=== PATIENT | female | born 1975 | race Caucasian/White ===

== ENCOUNTER 2017-09-04 14:12 | Emergency (ER) | payer MEDICAID ==
[~2017-09-04] VITALS: Ht 157.5 cm; Wt 70.0 kg
[~2017-09-04 14:12] MED LIST: ATEN25TA PO; HYDR-3686 PO; KETO15CR2 TP; MAGN400C PO; OMEP20CA10 PO; ONDA4TAB9 SL; PARO10TA85 PO; POTA20TA19 PO
[2017-09-04] MEDS ORDERED: clonazePAM 1mg tablet PO ONE (17:10)
[2017-09-04 17:52] VITALS: BP 117/76
== END 2017-09-04 17:58 | disposition home or self-care (01) ==
LOC: ER 14:15
DX: F41.0 Panic disorder [episodic paroxysmal anxiety] (principal); K21.9 Gastro-esophageal reflux disease without esophagitis; F32.9 Major depressive disorder, single episode, unspecified; Z87.891 Personal history of nicotine dependence
CPT/HCPCS: 93005; 99284

== ENCOUNTER 2018-05-25 13:50 | Emergency (ER) | payer MEDICAID ==
[~2018-05-25] VITALS: Ht 157.5 cm; Wt 60.0 kg
[2018-05-25 13:54] VITALS: BP 121/72
[2018-05-25] MEDS ORDERED: nitroGLYCERIN 0.4mg SUBLingual tab SL PRN (13:55)
[2018-05-25] MEDS ORDERED: aspirin 81mg tab.chew PO ONE (13:55)
[2018-05-25 14:33] LABS: BASOPHILS % (AUTO) 0.5 % (0-1); EOSINOPHILS # (AUTO) 0.2 X10'3 (0-0.9); EOSINOPHILS % (AUTO) 2.1 % (0-6); HEMATOCRIT 40.6 % (35.0-45.0); HEMOGLOBIN 14.2 g/dl (12.0-16.0); MEAN CORPUSCULAR HEMOGLOBIN 31.7 PG (27.0-31.0); MEAN CORPUSCULAR VOLUME 90.6 FL (78-98); MEAN PLATELET VOLUME 9.5 FL (7.4-10.4); MONOCYTES # (AUTO) 0.6 X10'3 (0-0.9); MONOCYTES % (AUTO) 7.9 % (2-12); NEUTROPHILS # (AUTO) 5.1 X10'3 (1.8-7.7); NEUTROPHILS % (AUTO) 64.5 % (42-75); PLATELET COUNT 249 X10'3 (140-440); RED BLOOD COUNT 4.49 X10'6 (4.20-5.60); RED CELL DISTRIBUTION WIDTH 13.1 % (11.5-14.5); WHITE BLOOD COUNT 7.9 X10'3 (4.5-11.0)
[2018-05-25 14:42] LABS: PROTHROMBIN TIME 10.4 SECONDS (9.0-12.0)
[2018-05-25 14:54] LABS: ALANINE AMINOTRANSFERASE 17 U/L (12-78); ALBUMIN/GLOBULIN RATIO 1.2 (1.1-1.5); ALKALINE PHOSPHATASE 42 IU/L (46-116); ANION GAP 11 (8-16); ASPARTATE AMINO TRANSFERASE 12 U/L (10-37); BILIRUBIN,TOTAL 0.5 MG/DL (0.1-1.0); BLOOD UREA NITROGEN 11 MG/DL (7-18); BUN/CREATININE RATIO 11.7 (6.6-38.0); CALCIUM 9.6 MG/DL (8.5-10.1); CHLORIDE 100 MMOL/L (99-107); CREATININE 0.94 MG/DL (0.40-0.90); GLUCOSE 101 MG/DL (70-104); SODIUM 140 MMOL/L (135-145); TOTAL CARBON DIOXIDE 28.7 MMOL/L (24-32); TOTAL PROTEIN 7.4 G/DL (6.4-8.2); eGFR 65 ML/MIN
[2018-05-25 14:56] LABS: POTASSIUM 2.9 MMOL/L (3.5-5.1)
[2018-05-25] MEDS ORDERED: potassium Cl oral solution 20 MEQ/15 ML PO ONE (15:00)
== END 2018-05-25 15:14 | disposition home or self-care (01) ==
LOC: ER 13:50
DX: F41.9 Anxiety disorder, unspecified (principal); E86.0 Dehydration; E87.6 Hypokalemia; N28.9 Disorder of kidney and ureter, unspecified; K21.9 Gastro-esophageal reflux disease without esophagitis; F32.9 Major depressive disorder, single episode, unspecified; Z79.899 Other long term (current) drug therapy
CPT/HCPCS: 36415; 71045; 80053; 83880; 84484; 85025; 85610; 93005; 99285

== ENCOUNTER 2018-10-20 08:33 | Emergency (ER) | payer MEDICAID ==
[~2018-10-20] VITALS: Ht 157.5 cm; Wt 58.0 kg
[2018-10-20] MEDS ORDERED: diphenhydrAMINE 50 mg/ml inj IM ONE (09:55)
[2018-10-20] MEDS ORDERED: PRED50TA PO (09:58)
[2018-10-20] MEDS ORDERED: DIPH25CA83 PO (09:58)
[2018-10-20] MEDS ORDERED: predniSONE 20 mg tablet PO ONE (10:00)
[2018-10-20 10:37] VITALS: BP 121/91
== END 2018-10-20 10:42 | disposition home or self-care (01) ==
LOC: ER 08:34
DX: L50.0 Allergic urticaria (principal); K21.9 Gastro-esophageal reflux disease without esophagitis; F17.200 Nicotine dependence, unspecified, uncomplicated
CPT/HCPCS: 93005; 96372; 99283; J1200; J7512

== ENCOUNTER 2019-03-25 09:25 | Emergency (ER) | payer MEDICAID ==
[~2019-03-25] VITALS: Ht 157.5 cm; Wt 59.1 kg
[~2019-03-25 09:25] MED LIST changes: +DIPH25CA83 PO; -OMEP20CA10 PO; +OMEP20CA11 PO; +PRED50TA PO
[2019-03-25 10:06] LABS: BASOPHILS # (AUTO) 0.1 X10'3 (0-0.2); BASOPHILS % (AUTO) 1.4 % (0-1); EOSINOPHILS # (AUTO) 0.2 X10'3 (0-0.9); HEMATOCRIT 42.7 % (35.0-45.0); LYMPHOCYTES # (AUTO) 1.7 X10'3 (1.1-4.8); LYMPHOCYTES % (AUTO) 30.9 % (21-51); MEAN CORPUSCULAR HEMOGLOBIN 32.8 PG (27.0-31.0); MEAN CORPUSCULAR VOLUME 93.6 FL (78-98); MONOCYTES # (AUTO) 0.5 X10'3 (0-0.9); MONOCYTES % (AUTO) 8.6 % (2-12); NEUTROPHILS % (AUTO) 56.1 % (42-75); PLATELET COUNT 206 X10'3 (140-440); RED BLOOD COUNT 4.56 X10'6 (4.20-5.60); RED CELL DISTRIBUTION WIDTH 12.5 % (11.5-14.5); WHITE BLOOD COUNT 5.4 X10'3 (4.5-11.0)
[2019-03-25 10:20] LABS: ALANINE AMINOTRANSFERASE 15 U/L (12-78); ALBUMIN 3.7 G/DL (3.4-5.0); ALBUMIN/GLOBULIN RATIO 1.2 (1.1-1.5); ALKALINE PHOSPHATASE 32 IU/L (46-116); ANION GAP 9 (8-16); ASPARTATE AMINO TRANSFERASE 10 U/L (10-37); BILIRUBIN,TOTAL 0.8 MG/DL (0.1-1.0); BLOOD UREA NITROGEN 7 MG/DL (7-18); BUN/CREATININE RATIO 8.5 (6.6-38.0); CHLORIDE 101 MMOL/L (99-107); CREATININE 0.82 MG/DL (0.40-0.90); GLUCOSE 97 MG/DL (70-104); POTASSIUM 3.1 MMOL/L (3.5-5.1); SODIUM 139 MMOL/L (135-145); TOTAL CARBON DIOXIDE 29.5 MMOL/L (24-32); TOTAL PROTEIN 6.8 G/DL (6.4-8.2); eGFR 76 ML/MIN
[2019-03-25] MEDS ORDERED: normal saline 1000ML IV soln IVB ONE ×2 (10:35)
[2019-03-25] MEDS ORDERED: potassium Cl 20 mEq SR tablet PO ONE (10:35)
[2019-03-25 12:25] VITALS: BP 110/84
== END 2019-03-25 12:30 | disposition home or self-care (01) ==
LOC: ER 09:26
DX: F41.9 Anxiety disorder, unspecified (principal); R42 Dizziness and giddiness; E87.6 Hypokalemia; R07.89 Other chest pain; K21.9 Gastro-esophageal reflux disease without esophagitis; F32.9 Major depressive disorder, single episode, unspecified; R10.13 Epigastric pain; H53.8 Other visual disturbances; Z86.69 Personal history of other diseases of the nervous system and sense organs; Z87.891 Personal history of nicotine dependence; Z79.899 Other long term (current) drug therapy
CPT/HCPCS: 36415; 71045; 80053; 85025; 93005; 99284; J7030; J7040

== ENCOUNTER 2019-05-01 09:32 | Observation (INO) | payer MEDICAID ==
[~2019-05-01] VITALS: Ht 157.5 cm; Wt 56.0 kg
[2019-05-01 10:28] LABS: PARTIAL THROMBOPLASTIN TIME 29 SECONDS (22-32)
[2019-05-01 10:35] LABS: ALANINE AMINOTRANSFERASE 13 U/L (12-78); ALBUMIN/GLOBULIN RATIO 1.3 (1.1-1.5); ALKALINE PHOSPHATASE 27 IU/L (46-116); ANION GAP 9 (8-16); ASPARTATE AMINO TRANSFERASE 7 U/L (10-37); BLOOD UREA NITROGEN 9 MG/DL (7-18); BUN/CREATININE RATIO 10.1 (6.6-38.0); CALCIUM 8.8 MG/DL (8.5-10.1); CHLORIDE 100 MMOL/L (99-107); CREATININE 0.89 MG/DL (0.40-0.90); GLUCOSE 140 MG/DL (70-104); SODIUM 139 MMOL/L (135-145); TOTAL CARBON DIOXIDE 29.9 MMOL/L (24-32); TOTAL PROTEIN 7.1 G/DL (6.4-8.2); eGFR 69 ML/MIN
[2019-05-01] MEDS ORDERED: LORazepam 2 mg/ml vial IM ONE (10:35)
[2019-05-01 10:38] LABS: POTASSIUM 2.5 MMOL/L (3.5-5.1)
[2019-05-01 10:43] LABS: BASOPHILS % (AUTO) 0.6 % (0-1); EOSINOPHILS % (AUTO) 0.8 % (0-6); LYMPHOCYTES # (AUTO) 1.2 X10'3 (1.1-4.8); LYMPHOCYTES % (AUTO) 21.4 % (21-51); MEAN PLATELET VOLUME 9.1 FL (7.4-10.4); MONOCYTES # (AUTO) 0.5 X10'3 (0-0.9); NEUTROPHILS # (AUTO) 3.8 X10'3 (1.8-7.7); NEUTROPHILS % (AUTO) 68.2 % (42-75); PLATELET COUNT 250 X10'3 (140-440); WHITE BLOOD COUNT 5.6 X10'3 (4.5-11.0)
[2019-05-01] MEDS ORDERED: potassium 10mEq/100ml NS w/LIDOcaine (10mg/bag) IV ONE (10:45)
[2019-05-01] MEDS ORDERED: potassium Cl 20 mEq SR tablet PO ONE (10:45)
[2019-05-01 10:50] LABS: HEMOGLOBIN 15.7 g/dl (12.0-16.0); MEAN CORPUSCULAR HEMOGLOBIN 32.3 PG (27.0-31.0); MEAN CORPUSCULAR HGB CONC 34.9 g/dL (33.0-36.5); MEAN CORPUSCULAR VOLUME 92.8 FL (78-98); RED BLOOD COUNT 4.86 X10'6 (4.20-5.60); RED CELL DISTRIBUTION WIDTH 12.4 % (11.5-14.5)
[2019-05-01] MEDS ORDERED: potassium CL 10mEq/100ml bag 100 ML IV ONE (10:52)
[2019-05-01 11:29] LABS: MAGNESIUM 1.4 MG/DL (1.5-2.4)
[2019-05-01] MEDS ORDERED: magnesium 4gm in 100ml NS 100 ML IV PRN (12:05)
[2019-05-01] MEDS ORDERED: potassium CL 10mEq/100ml bag 100 ML IV PRN ×2 (12:05)
[2019-05-01] MEDS ORDERED: ondansetron/PF 4mg/2ml inj IV PRN (12:05)
[2019-05-01] MEDS ORDERED: magnesium Cl slow-release 64mg tablet PO PRN (12:05)
[2019-05-01] MEDS ORDERED: magnesium 2GM in 50ml NS 50 ML IV PRN (12:05)
[2019-05-01] MEDS ORDERED: morphine 2 MG/ML inj. syringe IV PRN (12:05)
[2019-05-01] MEDS ORDERED: HYDROcodone/acetaminophen 5mg/325mg tablet PO PRN (12:05)
[2019-05-01] MEDS ORDERED: acetaminophen 325mg tablet PO PRN ×2 (12:05)
[2019-05-01] MEDS ORDERED: potassium Cl 20 mEq SR tablet PO PRN (12:05)
[2019-05-01] MEDS: normal saline 1000ml 1,000 ML IV SCH ×3 (12:27→20:42)
[2019-05-01] MEDS ORDERED: BUSP5TAB3 PO (13:03)
[2019-05-01] MEDS ORDERED: FLUO10CA28 PO (13:03)
[2019-05-01] MEDS ORDERED: HYDR-3686 PO (13:03)
[2019-05-01 14:00] VITALS: BP 97/53
--- NOTE | 2019-05-01 14:00 | NUR ---
Received patient report from SEB Fragoso. Patient to room 355 B. Patient alert, oriented, and in no apparent distress at this time. patient ambulated to the bed from the [facility]. Call light in reach, BLL.
--- NOTE | 2019-05-01 18:10 | NUR ---
Problems reprioritized. Patient report given, questions answered & plan of care reviewed with SEB Finn.
[2019-05-01 18:50] VITALS: BP 101/56
[2019-05-01] MEDS: potassium Cl 20 mEq SR tablet PO PRN (19:26)
[2019-05-01] MEDS: busPIRone 15mg tablet PO SCH (20:11)
[2019-05-01] MEDS: heparin, porcine 5000 units/ml vial SQ SCH (20:12)
[2019-05-01] MEDS: hydrOXYzine 25 MG tablet PO SCH (20:13)
[2019-05-01] MEDS ORDERED: temazepam 15mg capsule PO PRN (21:00)
[2019-05-01 23:00] VITALS: BP 98/54
[2019-05-02 05:43] LABS: BASOPHILS # (AUTO) 0.1 X10'3 (0-0.2); BASOPHILS % (AUTO) 0.9 % (0-1); EOSINOPHILS # (AUTO) 0.2 X10'3 (0-0.9); HEMATOCRIT 40.9 % (35.0-45.0); HEMOGLOBIN 14.5 g/dl (12.0-16.0); LYMPHOCYTES # (AUTO) 1.9 X10'3 (1.1-4.8); LYMPHOCYTES % (AUTO) 32.3 % (21-51); MEAN CORPUSCULAR HEMOGLOBIN 32.8 PG (27.0-31.0); MEAN CORPUSCULAR HGB CONC 35.5 g/dL (33.0-36.5); MEAN CORPUSCULAR VOLUME 92.6 FL (78-98); MEAN PLATELET VOLUME 9.4 FL (7.4-10.4); MONOCYTES # (AUTO) 0.5 X10'3 (0-0.9); MONOCYTES % (AUTO) 8.1 % (2-12); NEUTROPHILS # (AUTO) 3.3 X10'3 (1.8-7.7); NEUTROPHILS % (AUTO) 55.7 % (42-75); PLATELET COUNT 232 X10'3 (140-440); RED BLOOD COUNT 4.42 X10'6 (4.20-5.60); RED CELL DISTRIBUTION WIDTH 12.5 % (11.5-14.5)
[2019-05-02 05:50] LABS: ALBUMIN 3.5 G/DL (3.4-5.0); ANION GAP 10 (8-16); BLOOD UREA NITROGEN 5 MG/DL (7-18); BUN/CREATININE RATIO 7.4 (6.6-38.0); CALCIUM 8.3 MG/DL (8.5-10.1); CHLORIDE 106 MMOL/L (99-107); CREATININE 0.68 MG/DL (0.40-0.90); GLUCOSE 97 MG/DL (70-104); MAGNESIUM 1.7 MG/DL (1.5-2.4); POTASSIUM 3.1 MMOL/L (3.5-5.1); SODIUM 142 MMOL/L (135-145); TOTAL CARBON DIOXIDE 26.2 MMOL/L (24-32); eGFR > 90 ML/MIN
--- NOTE | 2019-05-02 06:24 | NUR ---
Problems reprioritized. Patient report given, questions answered & plan of care reviewed with Eleonora. Addendum: 05/02/19 at 0625 by Dio Santos RN Amended: Links added.
[2019-05-02 07:00] VITALS: BP 104/70
[2019-05-02] MEDS: LORazepam 1 MG tablet PO PRN ×2 (07:50→14:32)
[2019-05-02] MEDS: busPIRone 15mg tablet PO SCH (07:51)
[2019-05-02] MEDS: hydrOXYzine 25 MG tablet PO SCH (07:53)
[2019-05-02] MEDS: potassium Cl 20 mEq SR tablet PO PRN (07:57)
[2019-05-02] MEDS: heparin, porcine 5000 units/ml vial SQ SCH (07:59)
[2019-05-02] MEDS ORDERED: K and/or MAG REPLACEMENT MC SCH (08:00)
--- NOTE | 2019-05-02 08:00 | NUR ---
Patient refused heparin because she feels uncomfortable taking it. Patient educated and the benefit of having the heparin. Patient stated an understanding of this but still refused stating that she will be up and walking. Patient also very anxious at this time. Ativan given. Patient stated that her normal medications and doses are not being followed here and that she would like the MD to address this. Will discuss with Dr. Delgado.
--- NOTE | 2019-05-02 09:00 | NUR ---
Dr. Delgado in to see patient. Patient's normal home medications and doses were discussed with the MD. MD stated her current dose strength is okay and she will more than likely be discharging the patient anyway.
[2019-05-02] MEDS ORDERED: BUSP5TAB3 PO (09:07)
--- NOTE | 2019-05-02 10:15 | NUR ---
Received a message from Dr. Delgado that the discharge has been put in for patient but not to discharge until K is back within normal range. Dr. Delgado came back to the floor and was asked about the doses of potassium again. Patient normally takes a total of 80 mEq at home daily to keep up with her chronically low potassium. Her home dosage of potassium has been held for her time in the hospital. Based on our protocol we will only be giving a total of 60 mEq due to her K being 3.1. Dr. Delgado informed of this but stated that she would be okay to have only the 40 mEq this morning and an additional 20 mEq at 1200. She then wants the K redrawn at 1400 to see where her K is at.
[2019-05-02 11:00] VITALS: BP 90/43
[2019-05-02] MEDS ORDERED: potassium Cl 20 mEq SR tablet PO ONE (12:00)
--- NOTE | 2019-05-02 12:32 | NUR ---
Malnutrition consult, presents to ED with weakness/numbness to arms. Per physical assessment no muscle weakness and no edema. Great appetite, eating 100% of meals. Per chair scale weight on 10/21/18 of 58 kg, patient's current stated weight is 2 kg less. No significant wt loss. No malnutrition. Will continue to follow per protocol. Addendum: 05/02/19 at [address] Amended: Links added.
--- NOTE | 2019-05-02 15:27 | NUR ---
Patient discharge home via friend and taken from unit via ambulation with x1 staff. PIV removed with cannula intact. Tele monitor removed and tele chamber notified. Patient alert, oriented and in no apparent distress at time of discharge. Patient took all belongings with her including discharge instructions. Patient stated an understanding of discharge instructions and was given time for questions and answers. No new prescriptions were prescribed for this patient at time of discharge. Patient was encouraged to follow up with PCP and kidney MD.
== END 2019-05-02 15:27 | disposition home or self-care (01) ==
LOC: ER 09:34 → SUR 3N 13:41
PROVIDERS: ADMIT Internal Medicine; ATTEND Internal Medicine
DX: E87.6 Hypokalemia (principal); F41.9 Anxiety disorder, unspecified; Z79.899 Other long term (current) drug therapy; R53.1 Weakness; F32.9 Major depressive disorder, single episode, unspecified; K21.9 Gastro-esophageal reflux disease without esophagitis; R19.7 Diarrhea, unspecified; G40.909 Epilepsy, unspecified, not intractable, without status epilepticus; E26.81 Bartter's syndrome
CPT/HCPCS: 36415; 71045; 80048; 80053; 83735; 84132; 84484; 85025; 85610; 85730; 87081; 93005; 96361; 96365; 96372; 99284; G0378; J1644; J2060; J3480; J7030; Q0177; Z7610

== ENCOUNTER 2019-05-05 10:12 | Emergency (ER) | payer MEDICAID ==
[~2019-05-05] VITALS: Ht 157.5 cm; Wt 56.8 kg
[~2019-05-05 10:12] MED LIST changes: +BUSP5TAB3 PO; +FLUO10CA28 PO
[2019-05-05 10:45] LABS: BASOPHILS % (AUTO) 0.8 % (0-1); EOSINOPHILS # (AUTO) 0.1 X10'3 (0-0.9); EOSINOPHILS % (AUTO) 2.5 % (0-6); HEMOGLOBIN 14.4 g/dl (12.0-16.0); LYMPHOCYTES # (AUTO) 1.4 X10'3 (1.1-4.8); MEAN CORPUSCULAR HEMOGLOBIN 32.9 PG (27.0-31.0); MEAN CORPUSCULAR HGB CONC 35.2 g/dL (33.0-36.5); MEAN CORPUSCULAR VOLUME 93.3 FL (78-98); MEAN PLATELET VOLUME 8.8 FL (7.4-10.4); MONOCYTES # (AUTO) 0.5 X10'3 (0-0.9); NEUTROPHILS # (AUTO) 3.6 X10'3 (1.8-7.7); NEUTROPHILS % (AUTO) 63.7 % (42-75); PLATELET COUNT 261 X10'3 (140-440); RED BLOOD COUNT 4.39 X10'6 (4.20-5.60); RED CELL DISTRIBUTION WIDTH 12.6 % (11.5-14.5); WHITE BLOOD COUNT 5.7 X10'3 (4.5-11.0)
[2019-05-05 10:54] LABS: PARTIAL THROMBOPLASTIN TIME 28 SECONDS (22-32)
[2019-05-05 10:55] LABS: ALANINE AMINOTRANSFERASE 15 U/L (12-78); ALBUMIN 3.9 G/DL (3.4-5.0); ALBUMIN/GLOBULIN RATIO 1.3 (1.1-1.5); ALKALINE PHOSPHATASE 29 IU/L (46-116); ANION GAP 6 (8-16); ASPARTATE AMINO TRANSFERASE 6 U/L (10-37); BILIRUBIN,TOTAL 0.5 MG/DL (0.1-1.0); BLOOD UREA NITROGEN 6 MG/DL (7-18); BUN/CREATININE RATIO 7.9 (6.6-38.0); CALCIUM 9.1 MG/DL (8.5-10.1); CHLORIDE 101 MMOL/L (99-107); CREATININE 0.76 MG/DL (0.40-0.90); GLUCOSE 116 MG/DL (70-104); POTASSIUM 3.5 MMOL/L (3.5-5.1); SODIUM 137 MMOL/L (135-145); TOTAL CARBON DIOXIDE 30.4 MMOL/L (24-32); eGFR 83 ML/MIN
[2019-05-05] MEDS ORDERED: LORA1TAB PO (12:14)
[2019-05-05] MEDS ORDERED: LORazepam 1 MG tablet PO ONE (12:15)
[2019-05-05 12:24] VITALS: BP 134/104
== END 2019-05-05 12:29 | disposition home or self-care (01) ==
LOC: ER 10:13
DX: F41.9 Anxiety disorder, unspecified (principal); R00.2 Palpitations; K21.9 Gastro-esophageal reflux disease without esophagitis; F32.9 Major depressive disorder, single episode, unspecified; Z79.899 Other long term (current) drug therapy
CPT/HCPCS: 36415; 71045; 80053; 84484; 85025; 85610; 85730; 93005; 99284

== ENCOUNTER 2019-05-15 10:02 | Emergency (ER) | payer MEDICAID ==
[~2019-05-15] VITALS: Ht 157.5 cm; Wt 56.8 kg
[~2019-05-15 10:02] MED LIST changes: -ATEN25TA PO; -DIPH25CA83 PO; -KETO15CR2 TP; +LORA1TAB PO; -MAGN400C PO; -OMEP20CA11 PO; -ONDA4TAB9 SL; -PARO10TA85 PO; -PRED50TA PO
--- NOTE | 2019-05-15 10:35 | NUR ---
PATIENT UP TO BATHROOM
--- NOTE | 2019-05-15 11:08 | NUR ---
PATIENT TAKES SIX 20 MEQ POTASSIUM; TWO 400 MG MAGNESIUMS DAILY
[2019-05-15 11:13] LABS: BASOPHILS % (AUTO) 0.5 % (0-1); EOSINOPHILS # (AUTO) 0.1 X10'3 (0-0.9); HEMOGLOBIN 15.1 g/dl (12.0-16.0); LYMPHOCYTES # (AUTO) 1.1 X10'3 (1.1-4.8); LYMPHOCYTES % (AUTO) 16.7 % (21-51); MEAN CORPUSCULAR HEMOGLOBIN 32.5 PG (27.0-31.0); MEAN CORPUSCULAR HGB CONC 35.1 g/dL (33.0-36.5); MEAN CORPUSCULAR VOLUME 92.7 FL (78-98); MEAN PLATELET VOLUME 9.1 FL (7.4-10.4); MONOCYTES # (AUTO) 0.6 X10'3 (0-0.9); MONOCYTES % (AUTO) 8.3 % (2-12); NEUTROPHILS # (AUTO) 5.1 X10'3 (1.8-7.7); NEUTROPHILS % (AUTO) 73.5 % (42-75); PLATELET COUNT 256 X10'3 (140-440); RED BLOOD COUNT 4.64 X10'6 (4.20-5.60); RED CELL DISTRIBUTION WIDTH 12.5 % (11.5-14.5); WHITE BLOOD COUNT 6.9 X10'3 (4.5-11.0)
[2019-05-15 11:25] LABS: ALANINE AMINOTRANSFERASE 18 U/L (12-78); ALBUMIN/GLOBULIN RATIO 1.3 (1.1-1.5); ALKALINE PHOSPHATASE 26 IU/L (46-116); ANION GAP 12 (8-16); ASPARTATE AMINO TRANSFERASE 11 U/L (10-37); BILIRUBIN,TOTAL 0.8 MG/DL (0.1-1.0); BLOOD UREA NITROGEN 6 MG/DL (7-18); BUN/CREATININE RATIO 7.1 (6.6-38.0); CALCIUM 9.2 MG/DL (8.5-10.1); CHLORIDE 96 MMOL/L (99-107); CREATININE 0.84 MG/DL (0.40-0.90); GLUCOSE 112 MG/DL (70-104); MAGNESIUM 1.2 MG/DL (1.5-2.4); SODIUM 138 MMOL/L (135-145); TOTAL CARBON DIOXIDE 29.9 MMOL/L (24-32); TOTAL PROTEIN 7.2 G/DL (6.4-8.2); eGFR 74 ML/MIN
[2019-05-15] MEDS ORDERED: potassium Cl 20 mEq SR tablet PO STA (11:34)
[2019-05-15] MEDS ORDERED: magnesium Cl slow-release 64mg tablet PO ONE (11:35)
[2019-05-15 11:45] VITALS: BP 117/68
== END 2019-05-15 11:54 | disposition home or self-care (01) ==
LOC: ER 10:03
DX: M79.10 Myalgia, unspecified site (principal); E26.81 Bartter's syndrome; E87.6 Hypokalemia; E83.42 Hypomagnesemia; K21.9 Gastro-esophageal reflux disease without esophagitis; F41.9 Anxiety disorder, unspecified; F32.9 Major depressive disorder, single episode, unspecified; Z86.69 Personal history of other diseases of the nervous system and sense organs; Z79.899 Other long term (current) drug therapy
CPT/HCPCS: 36415; 80053; 83735; 85025; 99283

== ENCOUNTER 2022-10-17 07:38 | Emergency (ER) | payer MEDICAID ==
[~2022-10-17] VITALS: Ht 157.5 cm; Wt 68.2 kg
[~2022-10-17 07:38] MED LIST changes: -LORA1TAB PO; +POTA-207 PO; -POTA20TA19 PO
[2022-10-17 08:13] VITALS: BP 118/64
[2022-10-17] MEDS ORDERED: proparacaine 0.5% ophthalmic drops 15ml LEFTEYE ONE (09:15)
[2022-10-17] MEDS ORDERED: ketorolac trometh inj. 60 MG/2 ML VIAL IM ONE (09:30)
== END 2022-10-17 10:06 | disposition home or self-care (01) ==
LOC: ER 07:39
DX: H57.12 Ocular pain, left eye (principal); K21.9 Gastro-esophageal reflux disease without esophagitis
CPT/HCPCS: 96372; 99283; J1885

== ENCOUNTER 2022-11-18 12:02 | Emergency (ER) | payer MEDICAID ==
[~2022-11-18] VITALS: Ht 157.5 cm; Wt 72.6 kg
[2022-11-18 12:04] VITALS: BP 140/82
[2022-11-18] MEDS ORDERED: LORazepam 1 MG tablet PO ONE (12:25)
[2022-11-18] MEDS ORDERED: diphenhydrAMINE 25mg capsule PO ONE (12:25)
[2022-11-18] MEDS ORDERED: famotidine 20mg tablet PO ONE (12:25)
== END 2022-11-18 14:00 | disposition home or self-care (01) ==
LOC: ER 12:03
DX: R00.0 Tachycardia, unspecified (principal); T46.7X5A Adverse effect of peripheral vasodilators, initial encounter; K21.9 Gastro-esophageal reflux disease without esophagitis; F41.9 Anxiety disorder, unspecified; F32.9 Major depressive disorder, single episode, unspecified; Z72.89 Other problems related to lifestyle; Z79.899 Other long term (current) drug therapy; Y92.89 Other specified places as the place of occurrence of the external cause
CPT/HCPCS: 93005; 99283